=== PATIENT | female | born 1985 | race Hispanic/Latino ===

== ENCOUNTER → 2023-10-29 15:55 | Outpatient (REF) | payer OTHER, SELFPAY | LOC: PNTC 15:55 | PROVIDERS: ATTENDING PHYSICIAN Obstetrics & Gynecology | DX: O09.529 Supervision of elderly multigravida, unspecified trimester (principal); Z87.410 Personal history of cervical dysplasia | CPT/HCPCS: 76805; 76817 ==

== ENCOUNTER → 2023-11-20 15:03 | Outpatient (REF) | payer OTHER, SELFPAY | LOC: PNTC 15:03 | PROVIDERS: ATTENDING PHYSICIAN Obstetrics & Gynecology | DX: O09.529 Supervision of elderly multigravida, unspecified trimester (principal); O34.40 Maternal care for other abnormalities of cervix, unspecified trimester | CPT/HCPCS: 76811; 76817 ==

== ENCOUNTER → 2024-01-14 15:37 | Outpatient (REF) | payer OTHER, SELFPAY | LOC: PNTC 15:37 | PROVIDERS: ATTENDING PHYSICIAN Obstetrics & Gynecology | DX: Z87.410 Personal history of cervical dysplasia (principal) | CPT/HCPCS: 76816 ==

== ENCOUNTER → 2024-03-04 15:23 | Outpatient (REF) | payer OTHER, SELFPAY | LOC: PNTC 15:23 | PROVIDERS: ATTENDING PHYSICIAN Obstetrics & Gynecology | DX: O34.40 Maternal care for other abnormalities of cervix, unspecified trimester (principal); Z87.410 Personal history of cervical dysplasia; O09.529 Supervision of elderly multigravida, unspecified trimester | CPT/HCPCS: 59025; 76816 ==

== ENCOUNTER → 2024-03-11 15:39 | Outpatient (REF) | payer OTHER, SELFPAY | LOC: PNTC 15:39 | PROVIDERS: ATTENDING PHYSICIAN Obstetrics & Gynecology | DX: O09.529 Supervision of elderly multigravida, unspecified trimester (principal); O34.40 Maternal care for other abnormalities of cervix, unspecified trimester; Z87.410 Personal history of cervical dysplasia | CPT/HCPCS: 59025; 76815 ==

== ENCOUNTER → 2024-03-18 15:37 | Outpatient (REF) | payer OTHER, SELFPAY | LOC: PNTC 15:37 | PROVIDERS: ATTENDING PHYSICIAN Obstetrics & Gynecology | DX: O34.40 Maternal care for other abnormalities of cervix, unspecified trimester (principal); O09.529 Supervision of elderly multigravida, unspecified trimester | CPT/HCPCS: 59025; 76815 ==

== ENCOUNTER → 2024-03-25 15:33 | Outpatient (REF) | payer OTHER, SELFPAY | LOC: PNTC 15:33 | PROVIDERS: ATTENDING PHYSICIAN Obstetrics & Gynecology | DX: O09.529 Supervision of elderly multigravida, unspecified trimester (principal) | CPT/HCPCS: 59025; 76815 ==

== ENCOUNTER → 2024-04-01 15:31 | Outpatient (REF) | payer OTHER, SELFPAY | LOC: PNTC 15:31 | PROVIDERS: ATTENDING PHYSICIAN Obstetrics & Gynecology | DX: O34.40 Maternal care for other abnormalities of cervix, unspecified trimester (principal); Z87.410 Personal history of cervical dysplasia; O09.529 Supervision of elderly multigravida, unspecified trimester | CPT/HCPCS: 59025; 76816 ==

== ENCOUNTER → 2024-04-08 15:24 | Outpatient (REF) | payer OTHER, SELFPAY | LOC: PNTC 15:24 | PROVIDERS: ATTENDING PHYSICIAN Obstetrics & Gynecology | DX: Z87.410 Personal history of cervical dysplasia (principal); O09.529 Supervision of elderly multigravida, unspecified trimester | CPT/HCPCS: 59025; 76818 ==

== ENCOUNTER 2024-04-10 19:31 | Inpatient (IN) | payer OTHER, SELFPAY ==
[2024-04-10 19:53] VITALS: BMI 32.7
[2024-04-10 19:57] VITALS: BP 132/81
[2024-04-10] MEDS: LR 1000 IV (20:15)
[2024-04-10] MEDS: CYTOTEC 25 MICROGRAM VAG (20:17)
[2024-04-10 20:30] LABS: % Basophils 0.2 % (0-2); % Immature Granulocytes 0.6 % (0-0.5); % Lymphocytes 22.4 % (20.5-51.1); % Monocytes 10.3 % (1.7-9.3); % Neutrophils 63.5 % (42.2-75.2); Absolute Eosinophils 0.3 10^3/uL (0-0.7); Absolute Immature Granulocytes 0.1 10^3/uL (0-0.05); Absolute Lymphocytes 2.4 10^3/uL (1.2-3.4); Absolute Monocytes 1.1 10^3/uL (0.1-0.6); Absolute Neutrophils 6.7 10^3/uL (1.4-6.5); Hematocrit 34.6 % (37.0-47.0); Hemoglobin 11.4 g/dL (12.0-16.0); Mean Corp Hgb Conc. 32.9 g/dL (33.0-37.0); Mean Corpuscular Hgb 27.9 pg (27.0-31.0); Mean Corpuscular Volume 84.8 fL (81.0-99.0); Mean Platelet Volume 11.4 fL (7.4-10.4); Nucleated Red Blood Cells % 0 %; Platelet Count 239 10^3/uL (130-400); Red Blood Cell Count 4.08 10^6/uL (4.20-5.40); Red Cell Dist. Width 14.6 % (11.5-14.5); White Blood Cell Count 10.6 10^3/uL (4.8-10.8)
[2024-04-11] MEDS: CYTOTEC 50 MICROGRAM PO (00:30)
[2024-04-11] MEDS: STADOL 1 MG IV (02:55)
[2024-04-11] MEDS: CYTOTEC PO (03:58)
[2024-04-11] MEDS: LR 1000 IV (04:24)
[2024-04-11] MEDS: SUBLIMAZE 100 MCG EPIDURAL (04:35)
[2024-04-11] MEDS: FENTANYL/BUPIVACAINE 100 EPIDURAL (04:39)
[2024-04-11] MEDS: PITOCIN 30 UNITS/NSS 500 ML IV (07:44)
[2024-04-11] MEDS: MOTRIN 600 MG PO ×2 (09:18→19:24)
[2024-04-12 04:32] LABS: Hematocrit 31.4 % (37.0-47.0); Hemoglobin 10.6 g/dL (12.0-16.0)
[2024-04-12] MEDS: PRENATAL PLUS 1 TABLET PO (07:59)
[2024-04-12] MEDS: MOTRIN 600 MG PO (21:06)
[2024-04-13] MEDS: PRENATAL PLUS 1 TABLET PO (08:05)
[2024-04-15 11:40] LABS: Syphilis/T. pallidum Ab Reflex Negative (Negative)
== END 2024-04-13 12:09 | disposition home or self-care (01) | DRG 806 ==
LOC: LDRP 19:31
PROVIDERS: Obstetrics & Gynecology; ADMITTING PHYSICIAN Obstetrics & Gynecology; FAMILY PHYSICIAN Nurse Practitioner Family
PROC: 3E0P7VZ Introduction of Hormone into Female Reproductive, Via Natural or Artificial Opening (ICD-10-PCS; 2024-04-10)
PROC: 4A1HXCZ Monitoring of Products of Conception, Cardiac Rate, External Approach (ICD-10-PCS; 2024-04-10)
PROC: 0HQ9XZZ Repair Perineum Skin, External Approach (ICD-10-PCS; 2024-04-11)
PROC: 10E0XZZ Delivery of Products of Conception, External Approach (ICD-10-PCS; 2024-04-11)
DX: O99.284 Endocrine, nutritional and metabolic diseases complicating childbirth (principal); E74.00 Glycogen storage disease, unspecified; Z37.0 Single live birth; O62.3 Precipitate labor; O70.0 First degree perineal laceration during delivery; Z3A.40 40 weeks gestation of pregnancy
CPT/HCPCS: 36415; 85014; 85018; 85025; 86780; 86850; 86900; 86901